=== PATIENT | female | born 1995 | race American Indian/Alaskan Native ===

== ENCOUNTER 2019-07-27 04:46 | Emergency (ER) | payer SELFPAY ==
[2019-07-27 04:53] VITALS: BP 132/71
[2019-07-27] MEDS ORDERED: ACETAMINOPHEN W/CODEINE 300-30 MG TAB PO ONE (05:15)
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
== END 2019-07-27 06:52 | disposition home or self-care (01) ==
LOC: ED 04:46
DX: T22.10XA Burn of first degree of shoulder and upper limb, except wrist and hand, unspecified site, initial encounter (principal); F17.200 Nicotine dependence, unspecified, uncomplicated; X11.8XXA Contact with other hot tap-water, initial encounter; Y93.89 Activity, other specified; Y92.89 Other specified places as the place of occurrence of the external cause; Y99.8 Other external cause status
CPT/HCPCS: 99282